=== PATIENT | female | born 1965 | race Caucasian/White ===

== ENCOUNTER 2022-10-24 12:06 | Outpatient (CLI) | payer OTHER | END 2022-10-24 12:10 | disposition home or self-care (01) | LOC: NUCLEAR 12:06 | PROVIDERS: ATTEND Ophthalmology | DX: I82.413 Acute embolism and thrombosis of femoral vein, bilateral (principal) ==

== ENCOUNTER 2022-10-26 07:56 | Outpatient (CLI) | payer OTHER | END 2022-10-26 07:57 | disposition home or self-care (01) | LOC: NUCLEAR 07:56 | PROVIDERS: ATTEND Ophthalmology | DX: I70.213 Atherosclerosis of native arteries of extremities with intermittent claudication, bilateral legs (principal); R60.9 Edema, unspecified ==